=== PATIENT | female | born 1945 | race Caucasian/White ===

== ENCOUNTER 2022-06-10 11:36 | Emergency (ER) | payer MEDICARE, SELFPAY ==
--- NOTE | ~2022-06-10 | CT_ITS ---
EXAMINATION: CT HEAD WITHOUT CONTRAST CLINICAL INFORMATION: Head pain status post fall with head strike. COMPARISON: None available. TECHNIQUE: Contiguous axial imaging was performed from the skull base to vertex without intravenous administration of contrast. Coronal and sagittal reformatted images were obtained. This CT examination was performed using dose optimization techniques as appropriate, variously including the following: *Automated exposure control *Adjustment of mA and/or kV according to patient size (this includes techniques or standardized protocols for targeted exams where dose is matched to indication/reason for exam; i.e. extremities or head) *Use of iterative reconstruction technique DLP: 822 mGy-cm FINDINGS: There is mild widening of the cortical sulci and associated ventriculomegaly. The lateral ventricles are symmetrical. The third and fourth ventricles are in their normal midline position. The basilar and prepontine cisterns are unremarkable. There is no acute intra or extracerebral abnormality. There is no mass effect or midline shift. Sections through the bony calvarium are unremarkable. The orbits are intact. The paranasal sinuses are clear. The mastoid air cells are clear. Mild mid nasal septal deviation, apex of the right. CT/CT head/brain wo IV con IMPRESSION: No acute intracranial pathology.
--- NOTE | ~2022-06-10 | XR_ITS ---
EXAMINATION: XR ANKLE, RIGHT CLINICAL INFORMATION: Right ankle pain status post remote fall. COMPARISON: None available. TECHNIQUE: AP, lateral, and mortise views of the right ankle. FINDINGS: There is a minimally displaced fracture of the lateral malleolus with adjacent sclerotic changes. The distal tibia is intact. The tarsal bones are normally aligned. Small plantar and retrocalcaneal spurs are seen. The soft tissues are unremarkable. XR/XR ankle RT min 3V IMPRESSION: 1. Subacute, minimally displaced lateral malleolus fracture with adjacent sclerotic changes suggesting healing. 2. Small degenerative calcaneal spurs.
--- NOTE | ~2022-06-10 | CT_ITS ---
EXAMINATION: CT CERVICAL SPINE WITHOUT CONTRAST CLINICAL INFORMATION: Status post fall with neck pain. COMPARISON: None available. TECHNIQUE: Multiple axial images of the cervical spine were obtained without administration of intravenous contrast. Coronal and sagittal reformatted images were obtained. This CT examination was performed using dose optimization techniques as appropriate, variously including the following: *Automated exposure control *Adjustment of mA and/or kV according to patient size (this includes techniques or standardized protocols for targeted exams where dose is matched to indication/reason for exam; i.e. extremities or head) *Use of iterative reconstruction technique DLP: 202.49 mGy-cm FINDINGS: There is straightening of the normal cervical lordosis with normal spinal alignment. The patient is status post anterior fusion from C7 to T2 with interbody device in place showing good anatomic alignment and no evidence for hardware malfunction. Mild to moderate multilevel degenerative disc disease is seen most pronounced at C5-6 and C6-7. The odontoid process is intact with mild articulating degenerative changes. The neural foramina are patent. Mild to moderate multilevel bilateral facet arthropathy is seen. The spinous processes are intact. The cervical soft tissues are unremarkable. There is no lymphadenopathy. The thyroid gland is unremarkable. The lung apices are unremarkable. CT/CT cervical spine wo IV con IMPRESSION: 1. Straightening of the normal cervical lordosis may be secondary to positioning and/or muscle spasm. 2. Multilevel degenerative changes without acute abnormality.
--- NOTE | ~2022-06-10 | XR_ITS ---
EXAMINATION: XR WRIST, RIGHT CLINICAL INFORMATION: Right wrist pain status post fall. COMPARISON: None available. TECHNIQUE: PA, lateral, scaphoid and oblique views of the right wrist. An indicator arrow points to the medial wrist. FINDINGS: There is generalized osteopenia. Mild first carpometacarpal, triscaphe and radiocarpal degenerative joint changes are seen. The carpal bones are normally aligned. The distal radius and ulna are intact. The soft tissues are unremarkable. XR/XR wrist RT 2V IMPRESSION: Generalized osteopenia and mild degenerative joint changes most consistent with osteoarthritis. No overt fracture.
--- NOTE | ~2022-06-10 | XR_ITS ---
EXAMINATION: XR HIP, RIGHT, PELVIS CLINICAL INFORMATION: Hip pain status post remote fall. COMPARISON: None available. TECHNIQUE: Two views of the right hip. FINDINGS: Mild bilateral hip degenerative joint changes are seen. There is no acute fracture or dislocation. The bony pelvis is intact. The soft tissues are unremarkable. XR/XR hip RT w PEL1V IMPRESSION: Mild bilateral hip osteoarthritis. No acute fracture.
--- NOTE | 2022-06-10 11:39 | ED_ITS ---
HPI - General Adult General Chief complaint: General Medical Stated complaint: Laceration post fall per EMS Time Seen by Provider: 06/10/22 11:38 Source: patient, family (patient's daughter) and EMS Mode of arrival: EMS Limitations: no limitations History of Present Illness HPI narrative: Patient is a 77 year old assigned female at with a history of recent falls presenting to the emergency department today after a fall. Patient states that her cane got stuck in a crack going up a ramp and she fell. Patient states that she did strike her head but denies any loss of consciousness. Patient states that she had a previous fall in which she broke her right ankle and that is why she is wearing a brace on it. Patient states that she has right wrist and right hip pain. Patient states that she has a small cut to the left side of her head. Patient denies any dizziness, lightheadedness, abdominal pain, nausea, vomiting, fever, chills, blurry vision, double vision, loss of vision, chest pain, difficulty breathing, shortness of breath, back pain, night sweats, pain with urination, increased urinary frequency, increased urinary urgency, blood in her urine or stool, syncope or a near syncopal episode, bowel incontinence, bladder incontinence, bowel retention, bladder retention, or any other complaints at this time. Onset (ago): minute(s) Location: face and right (wrist and hip) Severity: mild Severity scale (1-10): 2 Quality: dull Relieving factors: none Exacerbating factors: none Associated symptoms: denies other symptoms Treatments prior to arrival: none Related Data Allergies Allergy/AdvReac Type Severity Reaction Status Date / Time No Known Allergies Allergy Verified 06/10/22 11:44 Review of Systems Constitutional: Constitutional: Reports no additional constitutional complaints, Denies chills, Denies fever(s) and Denies night sweats Eyes: Eyes: Reports no additional eye complaints, Denies blurry vision, Denies change in vision, Denies diplopia, Denies eye discharge, Denies loss of vision and Denies eye pain ENT: Denies dizziness Cardiovascular: Cardiovascular: Reports no additional cardiovascular complaints, Denies chest pain, Denies lightheadedness, Denies Loss of Consciousness and Denies dyspnea Respiratory: Respiratory: Reports no additional respiratory complaints and Denies dyspnea Gastrointestinal: Gastrointestinal: Reports no additional gastrointestinal complaints, Denies abdominal pain, Denies melena, Denies hematochezia, Denies change in bowel habits and Denies change in stool character Genitourinary: Genitourinary: Denies hematuria, Denies urinary frequency, Denies dysuria, Denies urinary incontinence, Denies urinary hesitancy and Denies urinary urgency Musculoskeletal: Musculoskeletal: Reports no additional musculoskeletal complaints, Denies numbness and Denies tingling Comments: right wrist pain, right hip pain, right ankle in brace Integumentary/Breasts: Comments: left foreahead laceration Neurologic: Denies dizziness, Denies loss of vision, Denies numbness and Denies tingling Psychiatric: Psychiatric: Reports no additional psychiatric complaints Endocrine: Endocrine: Reports no additional endocrine complaints Hematologic/Lymphatic: Hematologic/Lymphatic: Reports no additional hematologic/lymphatic complaints Allergic/Immunologic: Allergic/Immunologic: Reports no additional allergic/immunologic complaints PMFSH Past Medical History Attestation statement: The following information was validated with the patient. (all information validated with the patient's daughter) Source: old records reviewed, obtained from family (patient's daughter) and nursing notes reviewed Social History Social History Advance Directives: Yes Advance Directives Information Provided: No Advance Directives on File: No Physical Exam ED Vital Signs: Vital Signs - 24 hr 06/10/22 11:48 Temperature 97.7 F Pulse Rate 67 Respiratory Rate 17 Blood Pressure 129/80 Pulse Oximetry 98 Oxygen Delivery Method Room Air BMI result Body Mass Index 18.8 Const General: cooperative, no acute distress, alert and awake Nutritional Appearance: well nourished Orientation/consciousness: patient oriented x3 Limitations: no limitations HENMT Other: 1cm laceration above the left eyebrow, no gaping areas, no active bleeding Ears: hearing grossly normal bilaterally and external ears normal General nose exam: Normal external nose present, no nasal discharge noted and no epistaxis Face and sinus: Yes normal facial exam, No abrasion and No laceration Mouth: Normal oral and palatal mucosa present, no drooling and no muffled voice Eyes General: appearance normal, both eyes and all related structures Periorbital: periorbital findings normal Eyelids: Yes eyelids normal Conjunctivae: conjunctivae normal Pupils: Equal, round and reactive pupils present EOM: EOMs intact bilaterally Neck Neck: Yes normal visual inspection, Yes full ROM and Yes no lymphadenopathy Chest Chest palpation & inspection: normal inspection of the chest Resp Effort & Inspection: normal respiratory effort and able to speak in complete sentences Auscultation: clear to auscultation bilaterally Cardio Rate: regular rate Rhythm: regular rhythm GI Inspection: Yes normal to inspection Neuro General: patient oriented x3 and moves all extremities Cranial nerves: Yes Equal, round and reactive pupils present Cognition (Neuro): normal cognition Motor exam (neuro): 5/5 motor strength present throughout Sensory Exam: Normal double simultaneous stimulation for sensation Coordination: [id number] test normal Extrem Other: right ankle in a brace secondary to previous injury General: Yes full ROM and Yes capillary refill normal Psych Appearance: grossly normal Mental Status: mental status grossly normal Affect: normal affect Attitude: cooperative Thought process: Normal thought process present Thought content: Normal thought content present Insight: Good insight present (Psych) Medications Administered Discontinued Medications Generic Name Dose Route Start Last Admin Trade Name Freq PRN Reason Stop Dose Admin Diphtheria/Tetanus/Acell Pertussis 0.5 ml 06/10/22 11:45 06/10/22 12:04 Diphth,Pertus(Acell),Tet Adult 0.5 Ml Syringe IM 06/10/22 11:46 0.5 ml .ONCE ONE Administration Procedures Laceration Laceration 1: Site: face Side (If applicable): left (above eyebrow) Size (cm): 1 Description: linear Depth: simple, single layer Pre-repair: wound explored, irrigated extensively and deep structures intact Skin layer closed with: other (dermabond) Medical Decision Making Medical Decision Making MDM Narrative: Patient is a 77 year old assigned female at with a history of recent falls presenting to the emergency department today after a fall. Patient's physical exam showed a small laceration above the left eyebrow and a brace on the right ankle but was otherwise unremarkable. Patient's right wrist and right hip/pelvis x-rays showed no acute process. Patient's head and C-spine CTs showed no acute process. Patient's right ankle xr showed a known, healing, ankle fracture. Patient's left eyebrow laceration was repaired with dermabond, without incident. I explained my physical exam findings as well as all test results to the patient and the patient's daughter. I answered all questions asked by the patient and the patient's daughter. I stressed the importance of the patient taking her medication as prescribed. I stressed the importance of the patient following up with her primary care provider. I stressed the importance of the patient returning to the emergency department immediately if her symptoms were to worsen or if she were to develop any dizziness, shortness of breath, difficulty breathing, chest pain, blurry vision, loss of vision, nausea, vomiting, abdominal pain, fever, chills, back pain, or any other complaints. Patient and the patient's daughter verbalized agreement and understanding with this treatment plan and discharge. Differential Diagnosis Differential Diagnoses: The differential diagnosis associated with the presentation includes fall Independent Interpretation I performed an independent interpretation of an: Plain X-Ray and CT Scan Interpretation: My interpretation is in agreement with the radiologist's impression of these imaging studies. EXAMINATION: XR WRIST, RIGHT CLINICAL INFORMATION: Right wrist pain status post fall. COMPARISON: None available.? TECHNIQUE: PA, lateral, scaphoid and oblique views of the right wrist. An indicator arrow points to the medial wrist. FINDINGS: There is generalized osteopenia. Mild first carpometacarpal, triscaphe and radiocarpal degenerative joint changes are seen. The carpal bones are normally aligned. The distal radius and ulna are intact. The soft tissues are unremarkable. XR/XR wrist RT 2V IMPRESSION: Generalized osteopenia and mild degenerative joint changes most consistent with osteoarthritis. No overt fracture. Dictated By: Be Gomez MD Signed By: Electronically signed by Be Gomez MD 06/10/22 1419 EXAMINATION: XR HIP, RIGHT, PELVIS CLINICAL INFORMATION: Hip pain status post remote fall. COMPARISON: None available. TECHNIQUE: Two views of the right hip. FINDINGS: Mild bilateral hip degenerative joint changes are seen. There is no acute fracture or dislocation. The bony pelvis is intact. The soft tissues are unremarkable.? XR/XR hip RT w PEL1V IMPRESSION: Mild bilateral hip osteoarthritis. No acute fracture Dictated By: Be Gomez MD Signed By: Electronically signed by Be Gomez MD 06/10/22 1349 EXAMINATION: XR ANKLE, RIGHT CLINICAL INFORMATION: Right ankle pain status post remote fall.? COMPARISON: None available.? TECHNIQUE: AP, lateral, and mortise views of the right ankle. FINDINGS: There is a minimally displaced fracture of the lateral malleolus with adjacent sclerotic changes. The distal tibia is intact. The tarsal bones are normally aligned. Small plantar and retrocalcaneal spurs are seen. The soft tissues are unremarkable.? XR/XR ankle RT min 3V IMPRESSION: 1.? Subacute, minimally displaced lateral malleolus fracture with adjacent sclerotic changes suggesting healing. 2.? Small degenerative calcaneal spurs. Dictated By: Be Gomez MD Signed By: Electronically signed by Be Gomez MD 06/10/22 1352 EXAMINATION: CT HEAD WITHOUT CONTRAST CLINICAL INFORMATION: Head pain status post fall with head strike. COMPARISON: None available.? TECHNIQUE: Contiguous axial imaging was performed from the skull base to vertex without intravenous administration of contrast. Coronal and sagittal reformatted images were obtained. This CT examination was performed using dose optimization techniques as appropriate, variously including the following: *Automated exposure control *Adjustment of mA and/or kV according to patient size (this includes techniques or standardized protocols for targeted exams where dose is matched to indication/reason for exam; i.e. extremities or head) *Use of iterative reconstruction technique DLP: 822 mGy-cm FINDINGS: There is mild widening of the cortical sulci and associated ventriculomegaly. The lateral ventricles are symmetrical. The third and fourth ventricles are in their normal midline position. The basilar and prepontine cisterns are unremarkable. There is no acute intra or extracerebral abnormality. There is no mass effect or midline shift. Sections through the bony calvarium are unremarkable. The orbits are intact. The paranasal sinuses are clear. The mastoid air cells are clear. Mild mid nasal septal deviation, apex of the right. CT/CT head/brain wo IV con IMPRESSION: No acute intracranial pathology. Dictated By: Be Gomez MD Signed By: Electronically signed by Be Gomez MD 06/10/22 1402 EXAMINATION: CT CERVICAL SPINE WITHOUT CONTRAST CLINICAL INFORMATION: Status post fall with neck pain.? COMPARISON: None available.? ? TECHNIQUE: Multiple axial images of the cervical spine were obtained without administration of intravenous contrast. Coronal and sagittal reformatted images were obtained.? This CT examination was performed using dose optimization techniques as appropriate, variously including the following: *Automated exposure control *Adjustment of mA and/or kV according to patient size (this includes techniques or standardized protocols for targeted exams where dose is matched to indication/reason for exam; i.e. extremities or head) *Use of iterative reconstruction technique DLP: 202.49 mGy-cm FINDINGS: There is straightening of the normal cervical lordosis with normal spinal alignment. The patient is status post anterior fusion from C7 to T2 with interbody device in place showing good anatomic alignment and no evidence for hardware malfunction. Mild to moderate multilevel degenerative disc disease is seen most pronounced at C5-6 and C6-7. The odontoid process is intact with mild articulating degenerative changes. The neural foramina are patent. Mild to moderate multilevel bilateral facet arthropathy is seen. The spinous processes are intact. The cervical soft tissues are unremarkable. There is no lymphadenopathy. The thyroid gland is unremarkable. The lung apices are unremarkable. CT/CT cervical spine wo IV con IMPRESSION: 1.? Straightening of the normal cervical lordosis may be secondary to positioning and/or muscle spasm. 2.? Multilevel degenerative changes without acute abnormality. Dictated By: Be Gomez MD Signed By: Electronically signed by Be Gomez MD 06/10/22 8545 Independent Historian Clinical information obtained from an independent historian. History obtained from or confirmed by: EMS and Other (patient's daughter) Discharge Plan Discharge Clinical Impression: Fall Patient Disposition: Home, Self-Care Instructions: Skin Adhesive Care (ED), Fall Prevention (ED) Additional Instructions: Do NOT Get the affected area wet for 7 days. Follow up with your primary care provider. Return to the emergency department immediately if your symptoms worsen or if you develop any dizziness, shortness of breath, difficulty breathing, chest pain, blurry vision, loss of vision, nausea, vomiting, abdominal pain, fever, chills, back pain, or any other complaints. Referrals: Jasmyne Connolly MD [Primary Care Provider] - Interventions: ED Discharge Assessment Last Done: 06/10/22 14:29 Discharge Date/Time: 06/10/22 14:32 Print Language: Turkmen
[2022-06-10 11:48] VITALS: BP 129/80; BP 134/78; PULSE 66; PULSE 67; RESP 17; TEMP 36.5; O2SAT 97; O2SAT 98; BMI 18.8
[2022-06-10] MEDS: Diphth,Pertus(ACell),Tet Adult 0.5 ML SYRINGE IM (12:04)
--- OUTSIDE RECORDS SUMMARY | 2022-06-10 13:04 | XMS_ITS ---
Author Name Unknown Organization [facility] Address Unknown Care Team Providers Care General Accountant Name Role Phone Jeana Duncan Primary Care Physician [phone] Encounter FIN Number [id number] Date(s): 12/03/17 - 12/03/17 [facility] [address] [place], [place] [id number]- [phone] Discharge Disposition: Discharged to home or self care Attending Physician: Kwame Goss MD Admitting Physician: Kwame Goss MD Vital Signs Most recent to oldest [Reference Range]: 1 2 Body Mass Index 21 (12/03/17 10:06 AM) Height 172.72 cm (12/03/17 10:06 AM) Height In Inches 68 in (12/03/17 10:06 AM) Height Method Actual (12/03/17 10:06 AM) Weight 63 kg (12/03/17 10:06 AM) Weight In Pounds 138.891 lb (12/03/17 10:06 AM) Weight Last Obtained Date (12/03/17 10:06 AM) Weight Method Stated (12/03/17 10:06 AM) BSA 1.75 (12/03/17 10:06 AM) MF Score 15 (12/03/17 10:10 AM) Temperature Oral [35.8-37.3 DegC] 36.8 D egC (12/03/17 10:06 AM) Heart Rate [60-100 bpm] 74 bpm (12/03/17 11:00 AM) 87 bpm (12/03/17 10:06 AM) Respiratory Rate [12-24 br/min] 18 br/mi n (12/03/17 10:06 AM) Blood Pressure [90-140/60-90 mmHg] 148/7 2mmHg *HI* (12/03/17 11:00 AM) 152/81mmHg *HI* (12/03/17 10:06 AM) Mean Arterial Pressure 92 mmHg (12/03/17 11:00 AM) Masked Patient No (12/03/17 10:06 AM) Masked Staff No (12/03/17 10:06 AM) O2 Saturation [94-100 %] 96 % (12/03/17 11:00 AM) 99 % (12/03/17 10:06 AM) Problem List Condition Effective Dates Status Health Status Inform ant Alcoholism(Confirmed) Active Anemia(Confirmed) Active Anxiety(Confirmed) Active Depression(Confirmed) Active Hypothyroid(Confirmed) Active Korsakoff disease(Confirmed) Active Neuropathy(Confirmed) Active Allergies, Adverse Reactions, Alerts Substance Reaction Severity Status CeleBREX Active Medications acetaminophen-codeine #3 0 Refill(s) Start Date: 12/03/17 Status: Ordered baclofen 0 Refill(s) Start Date: 12/03/17 Status: Ordered busPIRone 0 Refill(s) Start Date: 12/03/17 Status: Ordered cephalexin 500 mg oral capsule 500 mg, = 1, Cap, po, QID, X 5, day, # 20, Cap, 0 Refill(s) Start Date: 09/13/14 Stop Date: 09/18/14 Status: Completed citalopram 20 mg oral tablet 20 mg, = 1, tab, Oral, DAILY Start Date: 12/12/15 Status: Ordered cyclobenzaprine 10 mg oral tablet 10 mg, = 1, tab, po, TID, PRN, for spasm, # 12, tab, 0 Refill(s) Start Date: 12/03/17 Stop Date: 12/10/17 Status: Ordered diclofenac 0 Refill(s) Start Date: 12/03/17 Status: Ordered escitalopram 0 Refill(s) Start Date: 12/03/17 Status: Ordered folic acid 0 Refill(s) Start Date: 12/03/17 Status: Ordered gabapentin 100 mg oral capsule 100 mg, = 1, Cap, Oral, QHS Start Date: 12/12/15 Status: Ordered hydrOXYzine pamoate 0 Refill(s) Start Date: 12/03/17 Status: Ordered Levothroid 50 mcg (0.05 mg) oral tablet 50 mcg, = 1, tab, Oral, DAILY Start Date: 12/12/15 Status: Ordered [place] 5 mg-325 mg oral tablet 1-2 tabs, po, Q4H, PRN, for pain, (not to exceed 4000 mg acetaminophen per day) Do not drive or operate machinery while on medications please., # 20, tab, 0 Refill(s) Start Date: 08/19/13 Stop Date: 12/12/15 Status: Completed oxyCODONE 5 mg oral capsule 5 mg, = 1, Cap, po, Q6H, PRN, for pain, 1 to 2 every 4 to 6 hours as needed for pain. Avoid excessive sedation., X 4, day, # 24, Cap, 0 Refill(s) Start Date: 09/13/14 Stop Date: 09/17/14 Status: Completed TNF COMMENT per daughter, patient hasn't taken med for a couple weeks. Start Date: 12/12/15 Stop Date: 12/19/15 Status: Discontinued traZODone 0 Refill(s) Start Date: 12/03/17 Status: Ordered Vitamin B1 100 mg oral tablet 100 mg, = 1, tab, Oral, DAILY Start Date: 12/12/15 Status: Ordered Vitamin B12 0 Refill(s) Start Date: 12/03/17 Status: Ordered Vitamin D3 1000 intl units oral tablet 1,000 International_Unit, = 1, tab, po, DAILY Start Date: 12/12/15 Status: Ordered Immunizations Given and Recorded Vaccine Date Status Refusal Reason tetanus/diphth/pertuss (Tdap) adult/adol 1 12/21/15 Given 1Result Comment: Right deltoid. Social History Social History Type Response Smoking Status Former smoker; Stopp ed at age: 40; 1 entered on: 12/21/15 1Smoked one half cigarette in last week and a half. Assessment and Plan Future Appointments ??
--- OUTSIDE RECORDS SUMMARY | 2022-06-10 13:04 | XMS_ITS ---
Author Name Unknown Organization [facility] Care Team Providers Care [place] Seamer Name Role Phone Jeana Duncan Primary Care Physician Encounter FIN Number [id number] Date(s): 10/15/16 - 10/15/16 [place] Discharge Disposition: Discharged to home or self care Attending Physician: Jenny Pettit PA-C Admitting Physician: Jenny Pettit PA-C Vital Signs Most recent to oldest [Refer ence Range]: 1 2 Height 172.72 cm (10/15/16 6:53 PM) Height In Inches 68 in (10/15/16 6:53 PM) Height Method Actual (10/15/16 6:53 PM) MF Score 60 (10/15/16 7:45 PM) Temperature Oral [35.8-37.3 DegC] 36.8 D egC (10/15/16 6:53 PM) Heart Rate [60-100 bpm] 101 bpm *HI* (10/15/16 6:53 PM) Pulse Rate 100 bpm (10/15/16 8:24 PM) Respiratory Rate [12-24 br/min] 16 br/mi n (10/15/16 8:24 PM) 18 br/min (10/15/16 6:53 PM) Blood Pressure Method Automatic (10/15/16 8:24 PM) Blood Pressure Extremity Left, Arm, Upper (10/15/16 8:24 PM) Blood Pressure Patient Position Sitting (10/15/16 8:24 PM) Blood Pressure [90-140/60-90 mmHg] 151/7 6mmHg *HI* (10/15/16 8:24 PM) 101/78mmHg (10/15/16 6:53 PM) Masked Patient No (10/15/16 6:53 PM) Masked Staff No (10/15/16 6:53 PM) Medical Gas Room Air (10/15/16 8:24 PM) Room Air (10/15/16 6:53 PM) O2 Saturation [94-100 %] 98 % (10/15/16 8:24 PM) 97 % (10/15/16 6:53 PM) Fall Precautions Call light within re ach of patient, Call light within reach of family, Visual doorway identifier, Toileting assistance, Constant observer, All medical equipment on same side of bed, Bed rails up, Bed in low position (10/15/16 7:45 PM) Problem List Condition Effective Dates Status Health Status Inform ant Alcoholism(Confirmed) Active Anemia(Confirmed) Active Anxiety(Confirmed) Active Depression(Confirmed) Active Hypothyroid(Confirmed) Active Korsakoff disease(Confirmed) Active Neuropathy(Confirmed) Active Allergies, Adverse Reactions, Alerts Substance Reaction Severity Status CeleBREX Active Medications cephalexin 500 mg oral capsule 500 mg, = 1, Cap, po, QID, X 5, day, # 20, Cap, 0 Refill(s) Start Date: 09/13/14 Stop Date: 09/18/14 Status: Completed citalopram 20 mg oral tablet 20 mg, = 1, tab, Oral, DAILY Start Date: 12/12/15 Status: Ordered gabapentin 100 mg oral capsule 100 mg, = 1, Cap, Oral, QHS Start Date: 12/12/15 Status: Ordered Levothroid 50 mcg (0.05 mg) oral tablet 50 mcg, = 1, tab, Oral, DAILY Start Date: 12/12/15 Status: Ordered [place] 5 mg-325 mg oral tablet 1-2 tabs, [...] Date: 12/12/15 Stop Date: 12/19/15 Status: Discontinued Vitamin B1 100 mg oral tablet 100 mg, = 1, tab, Oral, DAILY Start Date: 12/12/15 Status: Ordered Vitamin D3 1000 intl units oral tablet 1,000 International_Unit, = 1, tab, po, DAILY Start Date: 12/12/15 Status: Ordered Results Miscellaneous Lab Studies Most recent to oldest [Reference Range]: 1 POC Breathalyzer Result 0.163 (10/15/16 7:15 PM) Immunizations Given and Recorded Vaccine Date Status Refusal Reason tetanus/diphth/pertuss (Tdap) adult/adol 1 12/21/15 Given 1Result Comment: Right deltoid. Social History Social History Type Response Assessment and Plan Future Appointments ??
--- OUTSIDE RECORDS SUMMARY | 2022-06-10 13:04 | XMS_ITS ---
Author Name Unknown Organization [id number] Care Team Providers Care Material Hauler Name Role Phone Jeana Duncan Primary Care Physician Encounter FIN Number [id number] Date(s): 12/12/15 - 12/19/15 [id number] Discharge Diagnosis: Alcohol withdrawal Discharge Diagnosis: Alcoholic cirrhosis Discharge Diagnosis: Pancytopenia Discharge Diagnosis: Korsakoff disease Discharge Disposition: Discharged/transferred-Home Healthcare Attending Physician: Eryn Dorado MD Admitting Physician: Stevo Goss MD Vital Signs Most recent to oldest [Reference Range]: 1 2 3 Body Mass Index 23 (12/12/15 9:09 PM) Height 172.72 cm (12/12/15 9:09 PM) Height In Inches 68 in (12/12/15 9:09 PM) Height Method Actual (12/12/15 9:09 PM) Weight 70.1 kg (12/12/15 9:09 PM) Weight In Pounds 154.544 lb (12/12/15 9:09 PM) Weight Method Bed Scale (12/12/15 9:09 PM) Daily Weight [40-160 kg] 70.0 kg (12/19/15 3:20 AM) 69 kg (12/18/15 7:28 AM) 70.5 kg (12/18/15 6:33 AM) Daily Weight Method Bed Scale (12/19/15 3:20 AM) Bed Scale (12/18/15 7:28 AM) Bed Scale (12/18/15 6:33 AM) BSA 1.83 (12/12/15 9:09 PM) MF Score 40 (12/19/15 10:00 AM) 75 (12/18/15 7:26 PM) 55 (12/18/15 10:16 AM) Temperature Axillary [35.2-36.7 DegC] 36.8 DegC *HI* (10/11/16 12:29 AM) 36.7 DegC (12/16/15 10:06 PM) 37.2 DegC *HI* (12/16/15 4:00 AM) Temperature Oral [35.8-37.3 DegC] 36.8 DegC (12/19/15 3:16 PM) 36.8 DegC (12/19/15 12:51 PM) 36.9 DegC (12/19/15 7:24 AM) Heart Rate [60-100 bpm] 99 bpm (12/19/15 4:00 PM) 94 bpm (12/19/15 3:16 PM) 88 bpm (12/19/15 1:00 PM) Continuous Pulse Oximetry On (12/19/15 3:20 AM) On (12/18/15 11:28 PM) On (12/18/15 8:27 PM) Centralized Monitoring of Pulse Oximetry On (12/19/15 3:20 AM) On (12/18/15 11:28 PM) On (12/18/15 8:27 PM) Pulse Rate 72 bpm (12/16/15 2:23 PM) 83 bpm (12/16/15 12:12 PM) 85 bpm (12/16/15 10:00 AM) Respiratory Rate [12-24 br/min] 17 br/min (12/19/15 3:16 PM) 18 br/min (12/19/15 12:51 PM) 14 br/min (12/19/15 7:24 AM) Blood Pressure Method Automatic (12/19/15 3:16 PM) Automatic (12/19/15 12:51 PM) Automatic (12/19/15 7:24 AM) Blood Pressure Extremity Right, Arm, Upper (12/19/15 3:16 PM) Right, Arm, Upper (12/19/15 12:51 PM) Right, Arm, Upper (12/19/15 7:24 AM) Blood Pressure Patient Position Supine (12/19/15 3:20 AM) Supine (12/18/15 11:28 PM) Sitting (12/17/15 7:26 PM) Blood Pressure [90-140/60-90 mmHg] 116/55mmHg (12/19/15 3:16 PM) 126/68mmHg (12/19/15 12:51 PM) 111/63mmHg (12/19/15 7:24 AM) Mean Arterial Pressure 81 mmHg (12/18/15 3:43 PM) 72 mmHg (12/18/15 3:47 AM) 85 mmHg (12/17/15 1:49 PM) Masked Patient No (12/12/15 2:19 PM) No (12/12/15 2:14 PM) Masked Staff No (12/12/15 2:19 PM) No (12/12/15 2:14 PM) Vital Signs Additional Information Arrived to PCU (12/16/15 11:11 AM) patient sleeping (12/16/15 6:00 AM) patient sleeping (12/16/15 2:00 AM) Medical Gas Room Air (12/19/15 3:16 PM) Room Air (12/19/15 1:00 PM) Room Air (12/19/15 12:51 PM) Medical Gas Delivery Method N/A (12/18/15 11:50 AM) Nasal cannula (12/15/15 1:00 PM) Nasal cannula (12/15/15 12:00 PM) Oxygen Flow 2 L/min (12/15/15 1:00 PM) 2 L/min (12/15/15 12:00 PM) 2 L/min (12/15/15 11:00 AM) O2 Saturation [94-100 %] 97 % (12/19/15 3:16 PM) 100 % (12/19/15 1:00 PM) 100 % (12/19/15 12:51 PM) End Tidal CO2 26 mmHg (12/15/15 4:45 PM) 30 mmHg (12/15/15 1:00 PM) 33 mmHg (12/15/15 12:00 PM) Symptomatic No (12/17/15 8:40 AM) Activities Ambulation room (12/19/15 5:00 PM) Ambulation hallway, Up in chair, Other: SO here (12/19/15 4:00 PM) Ambulation hallway, Up in chair, Up to bathroom (12/19/15 3:00 PM) Bladder Checks Done (12/19/15 5:00 PM) Done (12/19/15 4:00 PM) Done (12/19/15 3:00 PM) Fall Precautions Done (12/19/15 5:00 PM) Done (12/19/15 4:00 PM) Done (12/19/15 3:00 PM) Interventions Heating Pad (12/19/15 10:00 AM) AM care, HOB elevated, Oral care (12/19/15 8:00 AM) HOB elevated (12/19/15 7:00 AM) VTE Prophylaxis PCDs Off (12/19/15 8:00 AM) PCDs Off (12/19/15 7:00 AM) PCDs On (12/19/15 6:00 AM) Interventions Pericare, Up to bathroom (12/19/15 3:00 PM) Pericare, Up to bathroom (12/19/15 12:00 PM) Pericare, Up to bathroom (12/19/15 8:00 AM) Safety One-to one Caregiver (12/19/15 5:00 PM) One-to one Caregiver (12/19/15 4:00 PM) One-to one Caregiver (12/19/15 3:00 PM) MEWS Score 1 (12/19/15 5:00 PM) 1 (12/19/15 1:00 PM) 0 (12/19/15 9:00 AM) MEWS Actions None required (12/19/15 5:00 PM) None required (12/19/15 1:00 PM) None required (12/19/15 9:00 AM) Problem List Condition Effective Dates Status Health Status Inform ant Korsakoff disease(Confirmed) Active Allergies, Adverse Reactions, Alerts Substance Reaction [...] Oral, DAILY Start Date: 12/12/15 Status: Ordered [place] 5 mg-325 mg oral tablet 1-2 tabs, [...] DAILY Start Date: 12/12/15 Status: Ordered Results Hematology Most recent to oldest [Reference Range]: 1 2 3 WBC [4.0-11.0 K/uL] 4.0 K/uL (12/19/15 6:38 AM) 3.8 K/uL *LOW* (12/18/15 6:39 AM) 3.6 K/uL *LOW* (12/17/15 7:01 AM) RBC [3.80-5.20 M/uL] 3.29 M/uL *LOW* (12/19/15 6:38 AM) 3.16 M/uL *LOW* (12/18/15 6:39 AM) 3.21 M/uL *LOW* (12/17/15 7:01 AM) Hgb [11.6-15.5 gm/dL] 11.6 gm/dL (12/19/15 6:38 AM) 11.1 gm/dL *LOW* (12/18/15 6:39 AM) 11.1 gm/dL *LOW* (12/17/15 7:01 AM) Hct [35.0-46.0 %] 33.9 % *LOW* (12/19/15 6:38 AM) 32.1 % *LOW* (12/18/15 6:39 AM) 32.2 % *LOW* (12/17/15 7:01 AM) MCV [80.0-100.0 FL] 103.2 FL *HI* (12/19/15 6:38 AM) 101.5 FL *HI* (12/18/15 6:39 AM) 100.2 FL *HI* (12/17/15 7:01 AM) MCH [25.0-34.0 PG] 35.2 PG *HI* (12/19/15 6:38 AM) 35.2 PG *HI* (12/18/15 6:39 AM) 34.5 PG *HI* (12/17/15 7:01 AM) MCHC [31.0-36.0 gm/dL] 34.1 gm/dL (12/19/15 6:38 AM) 34.7 gm/dL (12/18/15 6:39 AM) 34.4 gm/dL (12/17/15 7:01 AM) RDW [11.0-14.5 %] 15.8 % *HI* (12/19/15 6:38 AM) 16.2 % *HI* (12/18/15 6:39 AM) 16.0 % *HI* (12/17/15 7:01 AM) Platelet [150-400 K/uL] 145 K/uL *LOW* (12/19/15 6:38 AM) 108 K/uL *LOW* (12/18/15 6:39 AM) 85 K/uL *LOW* (12/17/15 7:01 AM) Neut Auto 26.9 % *NA* (12/19/15 6:38 AM) 36.9 % *NA* (12/18/15 6:39 AM) 38.8 % *NA* (12/17/15 7:01 AM) Lymph Auto 52.9 % *NA* (12/19/15 6:38 AM) 42.0 % *NA* (12/18/15 6:39 AM) 43.9 % *NA* (12/17/15 7:01 AM) [place] Auto 16.6 % *NA* (12/19/15 6:38 AM) 17.8 % *NA* (12/18/15 6:39 AM) 13.5 % *NA* (12/17/15 7:01 AM) Eos Auto 2.7 % *NA* (12/19/15 6:38 AM) 2.6 % *NA* (12/18/15 6:39 AM) 3.0 % *NA* (12/17/15 7:01 AM) Baso Auto 0.9 % *NA* (12/19/15 6:38 AM) 0.7 % *NA* (12/18/15 6:39 AM) 0.8 % *NA* (12/17/15 7:01 AM) Neut# Auto [2.0-7.3 K/uL] 1.1 K/uL *LOW* (12/19/15 6:38 AM) 1.4 K/uL *LOW* (12/18/15 6:39 AM) 1.4 K/uL *LOW* (12/17/15 7:01 AM) Lymph# Auto [1.0-3.4 K/uL] 2.1 K/uL (12/19/15 6:38 AM) 1.6 K/uL (12/18/15 6:39 AM) 1.6 K/uL (12/17/15 7:01 AM) [place]# Auto [0.00-0.80 K/uL] 0.70 K/uL (12/19/15 6:38 AM) 0.70 K/uL (12/18/15 6:39 AM) 0.50 K/uL (12/17/15 7:01 AM) Eos# Auto [0.0-0.5 K/uL] 0.1 K/uL (12/19/15 6:38 AM) 0.1 K/uL (12/18/15 6:39 AM) 0.1 K/uL (12/17/15 7:01 AM) Baso# Auto [0.0-0.1 K/uL] 0.0 K/uL (12/19/15 6:38 AM) 0.0 K/uL (12/18/15 6:39 AM) 0.0 K/uL (12/17/15 7:01 AM) Coagulation Most recent to oldest [Reference Range]: 1 2 3 PT [11.8-14.1 sec] 13.8 sec (12/18/15 6:39 AM) 14.3 sec *HI* (12/12/15 2:37 PM) INR [0.9-1.2] 1.1 (12/18/15 6:39 AM) 1.2 (12/12/15 2:37 PM) PTT [24-34 sec] 29 sec (12/12/15 2:37 PM) Chemistry Most recent to oldest [Reference Range]: 1 2 3 Sodium Lvl [135-145 mmol/L] 139 mmol/L (12/19/15 6:38 AM) 136 mmol/L (12/18/15 6:39 AM) 139 mmol/L (12/17/15 7:01 AM) POC Na [135-145 mmol/l] 140 mmol/l (12/12/15 2:43 PM) Potassium [3.5-5.3 mmol/L] 4.1 mmol/L (12/19/15 6:38 AM) 3.8 mmol/L (12/18/15 6:39 AM) 3.6 mmol/L (12/17/15 7:01 AM) POC K [3.5-5.3 mmol/l] 4.0 mmol/l (12/12/15 2:43 PM) Chloride [98-109 mmol/L] 97 mmol/L *LOW* (12/19/15 6:38 AM) 96 mmol/L *LOW* (12/18/15 6:39 AM) 100 mmol/L (12/17/15 7:01 AM) POC Chloride [98-109 mmol/L] 102 mmol/L (12/12/15 2:43 PM) CO2 [21-32 mmol/L] 26 mmol/L (12/19/15 6:38 AM) 25 mmol/L (12/18/15 6:39 AM) 25 mmol/L (12/17/15 7:01 AM) POC TCO2M [21-32 mmol/L] 21 mmol/L (12/12/15 2:43 PM) AGAP [5-16 mmol/L] 16 mmol/L (12/19/15 6:38 AM) 15 mmol/L (12/18/15 6:39 AM) 14 mmol/L (12/17/15 7:01 AM) POC AGAP [5-16] 22 *HI* (12/12/15 2:43 PM) Glucose. [70-99 mg/dL] 115 mg/dL *HI* (12/19/15 6:38 AM) 88 mg/dL (12/18/15 6:39 AM) 92 mg/dL (12/17/15 7:01 AM) POCi Glucose [70-200 mg/dL] 136 mg/dL (12/12/15 2:43 PM) BUN [7-23 mg/dL] 8 mg/dL (12/19/15 6:38 AM) 8 mg/dL (12/18/15 6:39 AM) 5 mg/dL *LOW* (12/17/15 7:01 AM) POC BUN [7.00-23.00 mg/dL] 8.00 mg/dL (12/12/15 2:43 PM) Creatinine [0.6-1.2 mg/dL] 0.6 mg/dL (12/19/15 6:38 AM) 0.6 mg/dL (12/18/15 6:39 AM) 0.5 mg/dL *LOW* (12/17/15 7:01 AM) POC CREAT [0.6-1.2 mg/dL] 0.6 mg/dL (12/12/15 2:43 PM) BUN/CRE Ratio [11-35 Ratio] 13 Ratio (12/19/15 6:38 AM) 13 Ratio (12/18/15 6:39 AM) 10 Ratio *LOW* (12/17/15 7:01 AM) Calcium [8.5-10.5 mg/dL] 9.3 mg/dL (12/19/15 6:38 AM) 9.2 mg/dL (12/18/15 6:39 AM) 8.7 mg/dL (12/17/15 7:01 AM) POC Ca Ion [1.05-1.32 mmol/l] 1.05 mmol/l (12/12/15 2:43 PM) Albumin [3.3-4.8 gm/dL] 3.8 gm/dL (12/18/15 6:39 AM) 3.8 gm/dL (12/13/15 6:36 AM) 5.0 gm/dL *HI* (12/12/15 2:37 PM) Total Protein [6.3-8.0 gm/dL] 6.4 gm/dL (12/18/15 6:39 AM) 6.2 gm/dL *LOW* (12/13/15 6:36 AM) 8.3 gm/dL *HI* (12/12/15 2:37 PM) Globulin [1.8-3.5 gm/dL] 2.6 gm/dL (12/18/15 6:39 AM) 2.4 gm/dL (12/13/15 6:36 AM) 3.3 gm/dL (12/12/15 2:37 PM) Alk Phos [31-120 U/L] 74 U/L (12/18/15 6:39 AM) 72 U/L (12/13/15 6:36 AM) 101 U/L (12/12/15 2:37 PM) A/G Ratio [1.0-2.2 Ratio] 1.5 Ratio (12/18/15 6:39 AM) 1.6 Ratio (12/13/15 6:36 AM) 1.5 Ratio (12/12/15 2:37 PM) Bili Total [0.0-1.5 mg/dL] 0.9 mg/dL (12/18/15 6:39 AM) 2.3 mg/dL *HI* (12/13/15 6:36 AM) 1.5 mg/dL (12/12/15 2:37 PM) Bili Direct [0.0-0.3 mg/dL] 0.2 mg/dL (12/18/15 6:39 AM) 0.3 mg/dL (12/12/15 2:37 PM) AST [5-40 U/L] 39 U/L (12/18/15 6:39 AM) 49 U/L *HI* (12/13/15 6:36 AM) 92 U/L *HI* (12/12/15 2:37 PM) ALT [5-50 U/L] 30 U/L (12/18/15 6:39 AM) 29 U/L (12/13/15 6:36 AM) 47 U/L (12/12/15 2:37 PM) Phosphorus [2.5-4.8 mg/dL] 4.3 mg/dL (12/19/15 6:38 AM) 4.0 mg/dL (12/18/15 6:39 AM) 3.8 mg/dL (12/17/15 7:01 AM) GFR [>=60 mL/min/1.73 m2] 99 mL/min/1.73 m2 (12/19/15 6:38 AM) 99 mL/min/1.73 m2 (12/18/15 6:39 AM) 123 mL/min/1.73 m2 (12/17/15 7:01 AM) Lipase Lvl [7-60 U/L] 20 U/L (12/12/15 2:37 PM) Magnesium [1.5-2.4 mg/dL] 1.7 mg/dL (12/19/15 6:38 AM) 1.6 mg/dL (12/18/15 6:39 AM) 1.6 mg/dL (12/17/15 7:01 AM) Ammonia Lvl [<=33 umol/L] 13 umol/L (12/12/15 3:05 PM) POC TROP [0.04-0.30 ng/mL] <.04 ng/mL (12/12/15 2:41 PM) TSH [0.40-5.00 uIU/mL] 3.22 uIU/mL (12/12/15 2:37 PM) Ethanol Lvl [<=10.1 mg/dL] 12.0 mg/dL *HI* (12/12/15 2:37 PM) Vitamin B12 [>=247 pg/mL] 319 pg/mL (12/12/15 5:52 PM) Urine Studies Most recent to oldest [Reference Range]: 1 2 3 POC Urine Spec. [place] 1.025 (12/12/15 4:58 PM) POC Urine Color Yellow (12/12/15 4:58 PM) POC Urine Clarity Clear (12/12/15 4:58 PM) POC Urine Glucose Negative *NA* (12/12/15 4:58 PM) POC Urine Bilirubin Negative (12/12/15 4:58 PM) POC Urine Ketones Trace *NA* (12/12/15 4:58 PM) POC Urine Blood Small *ABN* (12/12/15 4:58 PM) POC Urine PH 5.5 (12/12/15 4:58 PM) POC Urine Protein 30 mg/dL *ABN* (12/12/15 4:58 PM) POC Urine Urobilinogen 0.2 (12/12/15 4:58 PM) POC Urine Nitrites Negative (12/12/15 4:58 PM) POC Urine Leukocytes Negative (12/12/15 4:58 PM) Immunizations No data available for this section Procedures Procedure Date Related Diagnosis Body Site Collection of venous blood b y venipuncture 06-MAR-2014 11:40:11<$> 12/19/15 Collection of venous blood b y venipuncture 06-MAR-2014 11:40:11<$> 12/18/15 Collection of venous blood b y venipuncture 06-MAR-2014 11:40:11<$> 12/17/15 Collection of venous blood b y venipuncture 06-MAR-2014 11:40:11<$> 12/16/15 Collection of venous blood b y venipuncture 06-MAR-2014 11:40:11<$> 12/15/15 Collection of venous blood b y venipuncture 06-MAR-2014 11:40:11<$> 12/14/15 Collection of venous blood b y venipuncture 06-MAR-2014 11:40:11<$> 12/13/15 Social History Social History Type Response Smoking Status Former smoker; Stopp ed at age: 40 Assessment and Plan Future Appointments ??
--- OUTSIDE RECORDS SUMMARY | 2022-06-10 13:04 | XMS_ITS ---
Author Name Unknown Organization [facility] Address [address] [address]- Care Team Providers Care Straightening Roll Operator Name Role Phone Willa Nj Primary Care Physician Encounter FIN Number [id number] Date(s): 05/22/20 - 06/04/20 [facility] [id number] [place] [id number] Problem List Condition Effective Dates Status Health [...] Start Date: 12/03/17 Stop Date: 12/10/17 Status: Completed diclofenac 0 Refill(s) Start Date: 12/03/17 Status: Ordered escitalopram 0 Refill(s) Start Date: 12/03/17 Status: Ordered folic acid 0 Refill(s) Start Date: 12/03/17 Status: Ordered gabapentin 100 mg oral capsule 100 mg, = 1, Cap, Oral, QHS Start Date: 12/12/15 Status: Ordered hydrOXYzine pamoate 0 Refill(s) Start Date: 12/03/17 Status: Ordered ibuprofen PRN, Pain Start Date: 08/17/19 Status: Ordered Levothroid 50 mcg (0.05 mg) oral tablet 50 mcg, = 1, tab, Oral, DAILY Start Date: 12/12/15 Status: Ordered [place] 5 mg-325 mg oral tablet 1-2 tabs, [...] Date: 09/13/14 Stop Date: 09/17/14 Status: Completed oxyCODONE 5 mg oral capsule 5 mg, = 1, Cap, po, Q6H, PRN, for pain, X 3, day, # 7, Cap, 0 Refill(s) Start Date: 08/17/19 Stop Date: 08/20/19 Status: Completed TNF COMMENT per daughter, patient [...] deltoid. Social History Social History Type Response Tobacco Current everyday smo ker Assessment and Plan Future Appointments ??
--- OUTSIDE RECORDS SUMMARY | 2022-06-10 13:04 | XMS_ITS ---
Author Name Unknown Organization [facility] Care Team Providers Care Chimney Repairer Name Role Phone Jeana Duncan Primary Care Physician Encounter FIN Number [id number] Date(s): 09/13/14 - 09/13/14 [id number] Discharge Disposition: Discharged to home or self care Attending Physician: Vickie Santana MD Admitting Physician: Vickie Santana MD Vital Signs Most recent to oldest [Reference Range]: 1 2 3 MF Score 0 (09/13/14 9:07 PM) Temperature Oral [35.8-37.3 DegC] 36.7 DegC (09/13/14 4:55 PM) Heart Rate [60-100 bpm] 73 bpm (09/13/14 10:45 PM) 77 bpm (09/13/14 9:45 PM) 86 bpm (09/13/14 9:15 PM) Pulse Rate 73 bpm (09/13/14 10:45 PM) 80 bpm (09/13/14 10:30 PM) 78 bpm (09/13/14 10:15 PM) Respiratory Rate [12-24 br/min] 16 br/min (09/13/14 10:45 PM) 14 br/min (09/13/14 9:45 PM) 17 br/min (09/13/14 9:15 PM) Blood Pressure [90-140/60-90 mmHg] 123/71mmHg (09/13/14 10:45 PM) 118/68mmHg (09/13/14 10:30 PM) 123/67mmHg (09/13/14 10:15 PM) Mean Arterial Pressure 84 mmHg (09/13/14 10:45 PM) 81 mmHg (09/13/14 10:30 PM) 82 mmHg (09/13/14 10:15 PM) Masked Patient No (09/13/14 4:55 PM) Masked Staff No (09/13/14 4:55 PM) Medical Gas Room Air (09/13/14 10:45 PM) Room Air (09/13/14 10:30 PM) Room Air (09/13/14 10:15 PM) O2 Saturation [94-100 %] 99 % (09/13/14 10:45 PM) 97 % (09/13/14 10:30 PM) 98 % (09/13/14 10:15 PM) Problem List No data available for this section Allergies, Adverse Reactions, Alerts Substance Reaction Severity Status NKA Active Medications cephalexin 500 mg oral capsule 500 mg, = 1, Cap, po, QID, X 5, day, # 20, Cap, 0 Refill(s) Start Date: 09/13/14 Stop Date: 09/18/14 Status: Ordered [place] 5 mg-325 mg oral tablet 1-2 tabs, po, Q4H, PRN, for pain, (not to exceed 4000 mg acetaminophen per day) Do not drive or operate machinery while on medications please., # 20, tab, 0 Refill(s) Special Instructions: (not to exceed 4000 mg acetaminophen per day) Do not drive or operate machinery while on medications please. Start Date: 08/19/13 Status: Ordered oxyCODONE 5 mg oral capsule 5 mg, = 1, Cap, po, Q6H, PRN, for pain, 1 to 2 every 4 to 6 hours as needed for pain. Avoid excessive sedation., X 4, day, # 24, Cap, 0 Refill(s) Special Instructions: 1 to 2 every 4 to 6 hours as needed for pain. Avoid excessive sedation. Start Date: 09/13/14 Stop Date: 09/17/14 Status: Ordered Results Hematology Most recent to oldest [Reference Range]: 1 WBC [4.0-11.0 K/uL] 9.4 K/uL (09/13/14 8:00 PM) RBC [3.80-5.20 M/uL] 3.52 M/uL *LOW* (09/13/14 8:00 PM) Hgb [11.6-15.5 gm/dL] 13.3 gm/dL (09/13/14 8:00 PM) Hct [35.0-46.0 %] 39.0 % (7/9/15 8:00 PM) MCV [80.0-100.0 FL] 110.6 FL *HI* (09/13/14 8:00 PM) MCH [25.0-34.0 PG] 37.8 PG *HI* (09/13/14 8:00 PM) MCHC [31.0-36.0 gm/dL] 34.1 gm/dL (09/13/14 8:00 PM) RDW [11.0-14.5 %] 12.9 % (09/13/14 8:00 PM) Platelet [150-400 K/uL] 209 K/uL (09/13/14 8:00 PM) Neut Auto 81.3 % *NA* (09/13/14 8:00 PM) Lymph Auto 13.0 % *NA* (09/13/14 8:00 PM) [place] Auto 4.9 % *NA* (09/13/14 8:00 PM) Eos Auto 0.3 % *NA* (09/13/14 8:00 PM) Baso Auto 0.5 % *NA* (09/13/14 8:00 PM) Neut# Auto [2.0-7.3 K/uL] 7.7 K/uL *HI* (09/13/14 8:00 PM) Lymph# Auto [1.0-3.4 K/uL] 1.2 K/uL (09/13/14 8:00 PM) [place]# Auto [0.00-0.80 K/uL] 0.50 K/uL (09/13/14 8:00 PM) Eos# Auto [0.0-0.5 K/uL] 0.0 K/uL (09/13/14 8:00 PM) Baso# Auto [0.0-0.1 K/uL] 0.0 K/uL (09/13/14 8:00 PM) RBC Morph [Normal] Abnormal *ABN* (09/13/14 8:00 PM) Macrocytosis 2+ *ABN* (09/13/14 8:00 PM) Coagulation Most recent to oldest [Reference Range]: 1 PT [11.8-14.1 sec] 13.0 sec (09/13/14 8:00 PM) INR [0.9-1.2] 1.0 (09/13/14 8:00 PM) PTT [24-34 sec] 27 sec (09/13/14 8:00 PM) Chemistry Most recent to oldest [Reference Range]: 1 POC Na [135-145 mmol/l] 141 mmol/l (09/13/14 8:13 PM) POC K [3.5-5.3 mmol/l] 3.7 mmol/l (09/13/14 8:13 PM) POC Chloride [98-109 mmol/L] 105 mmol/L (09/13/14 8:13 PM) POC TCO2M [21-32 mmol/L] 22 mmol/L (09/13/14 8:13 PM) POC AGAP [5-16] 19 *HI* (09/13/14 8:13 PM) POCi Glucose [70-200 mg/dL] 114 mg/dL (09/13/14 8:13 PM) POC BUN [7.00-23.00 mg/dL] 11.00 mg/dL (09/13/14 8:13 PM) POC CREAT [0.6-1.2 mg/dL] 0.6 mg/dL (09/13/14 8:13 PM) POC Ca Ion [1.05-1.32 mmol/l] 1.22 mmol/ l (09/13/14 8:13 PM) Albumin [3.3-4.8 gm/dL] 4.1 gm/dL (09/13/14 8:00 PM) Total Protein [6.3-8.0 gm/dL] 7.4 gm/dL (09/13/14 8:00 PM) Globulin [1.8-3.5 gm/dL] 3.3 gm/dL (09/13/14 8:00 PM) Alk Phos [31-98 U/L] 64 U/L (09/13/14 8:00 PM) A/G Ratio [1.0-2.2 gm/dL] 1.2 gm/dL (09/13/14 8:00 PM) Bili Total [0.0-1.5 mg/dL] 0.9 mg/dL (09/13/14 8:00 PM) Bili Direct [0.0-0.3 mg/dL] <0.2 mg/dL (09/13/14 8:00 PM) AST [5-40 U/L] 33 U/L (09/13/14 8:00 PM) ALT [5-50 U/L] 19 U/L (09/13/14 8:00 PM) Immunizations No data available for this section Procedures No data available for this section Social History Social History Type Response Smoking Status Former smoker Assessment and Plan Future Appointments ??
--- OUTSIDE RECORDS SUMMARY | 2022-06-10 13:04 | XMS_ITS ---
Author Name Unknown Organization [facility] Address Unknown Care Team Providers Care Examination Scorer Name Role Phone Willa N[place] Primary Care Physician Encounter FIN Number [id number] Date(s): 01/17/21 - 01/19/[address] [facility] Encounter Diagnosis Encounter for laboratory testing for COVID-19 virus(Discharge Diagnosis) - 01/17/21 Attending Physician: India Ko PA-C Admitting Physician: India Ko PA-C Problem List Condition Effective Dates Status Health [...] Oral, DAILY Start Date: 12/12/15 Status: Ordered [place] 5 mg-325 mg oral tablet 1-2 tabs, [...] DAILY Start Date: 12/12/15 Status: Ordered Results Most recent to oldest [Reference Range]: 1 COVID-19 Result [Not Detected] Not Detec isaiah (01/17/21 10:07 AM) Immunizations Given and Recorded Vaccine Date Status Refusal Reason tetanus/diphth/pertuss (Tdap) adult/adol 1 12/21/15 Given 1Result Comment: Right deltoid. Social History Social History Type Response Tobacco Current everyday smo ker Assessment and Plan Future Appointments ??
--- OUTSIDE RECORDS SUMMARY | 2022-06-10 13:04 | XMS_ITS ---
Author Name Unknown Organization [facility] Care Team Providers Care [employer] Name Role Phone Jeana Duncan Primary Care Physician [phone] Encounter FIN Number [id number] Date(s): 09/26/14 - 09/26/14 [facility] Discharge Disposition: Discharged to home or self care Attending Physician: Billy Vides MD Admitting Physician: Billy Vides MD Vital Signs No data available for this section Problem List No data available for this section Allergies, Adverse Reactions, Alerts Substance Reaction Severity Status NKA Active Medications cephalexin 500 mg oral capsule 500 mg, = 1, Cap, po, QID, X 5, day, # 20, Cap, 0 Refill(s) Start Date: 09/13/14 Stop Date: 09/18/14 Status: Completed [place] 5 mg-325 mg oral tablet 1-2 tabs, po, Q4H, PRN, for pain, (not to exceed 4000 mg acetaminophen per day) Do not drive or operate machinery while on medications please., # 20, tab, 0 Refill(s) Start Date: 08/19/13 Status: Ordered oxyCODONE 5 mg oral capsule 5 mg, = 1, Cap, po, Q6H, PRN, for pain, 1 to 2 every 4 to 6 hours as needed for pain. Avoid excessive sedation., X 4, day, # 24, Cap, 0 Refill(s) Start Date: 09/13/14 Stop Date: 09/17/14 Status: Completed Results No data available for this section Immunizations No data available for this section Procedures No data available for this section Social History Social History Type Response Smoking Status Former smoker Assessment and Plan Future Appointments ??
--- OUTSIDE RECORDS SUMMARY | 2022-06-10 13:04 | XMS_ITS ---
Author Name Unknown Organization [facility] Address Unknown Care Team Providers Care Skin Care Therapist Name Role Phone Jeana Duncan Primary Care Physician Encounter FIN Number [id number] Date(s): 12/03/17 - 12/03/17 [facility] [address], [address] [place] [address]- Encounter Diagnosis New onset headache(Discharge Diagnosis) - 12/03/17 Neck stiffness(Discharge Diagnosis) - 12/03/17 Gait instability(Discharge Diagnosis) - 12/03/17 Attending Physician: Jaquan Holilday Admitting Physician: Jaquan Holliday Vital Signs Most recent to oldest [Reference Range]: 1 Body Mass Index 21 (12/03/17 9:08 AM) Height 172.72 cm (12/03/17 9:08 AM) Height In Inches 68 in (12/03/17 9:08 AM) Height Method Actual (12/03/17 9:08 AM) Weight 61.236 kg (12/03/17 9:08 AM) Weight In Pounds 135.002 lb (12/03/17 9:08 AM) Weight Method Stated (12/03/17 9:08 AM) BSA 1.73 (12/03/17 9:08 AM) Temperature Oral [96.4-99.1 DegF] 98.8 D egF (12/03/17 9:08 AM) Heart Rate [60-100 bpm] 94 bpm (12/03/17 9:08 AM) Respiratory Rate [12-24 br/min] 16 br/mi n (12/03/17 9:08 AM) Blood Pressure [90-140/60-90 mmHg] 126/7 8mmHg (12/03/17 9:08 AM) Masked Patient No (12/03/17 9:08 AM) Masked Staff No (12/03/17 9:08 AM) O2 Saturation [94-100 %] 99 % (12/03/17 9:08 AM) Problem List Condition Effective Dates Status [...] Oral, DAILY Start Date: 12/12/15 Status: Ordered [place] 5 mg-325 mg oral tablet 1-2 tabs, [...] History Type Response Smoking Status Former smoker; [facility] ed at age: 40; 1 entered on: 12/21/15 1Smoked one half cigarette in last week and a half. Assessment and Plan Extracted from: Title:Urgent Care Author:Jaquan HollidayP Date:12/03/17 1.??New onset headache ?? (R 51) New onset headache??in patient who reports she does not typically get headaches, neck stiffness, and gait instability. ??Directed patient to ER in private vehicle for further eval and treatment as indicated.?? Patient understands and agrees with plan, ??Patient's daughter will drive her to the ER. 2.??Neck stiffness ?? (M43.6) As noted above 3.??Gait instability ?? (R26.81) As noted above Future Appointments ??
--- OUTSIDE RECORDS SUMMARY | 2022-06-10 13:05 | XMS_ITS ---
Author Name Unknown Organization [facility] Address Unknown Care Team Providers Care Cover Creaser Name Role Phone Willa Nj Primary Care Physician Encounter FIN Number [id number] Date(s): 08/17/19 - 08/17/19 [facility] [address], [address] [place], [place] [address] Encounter Diagnosis Injury of left hand(Discharge Diagnosis) - 08/17/19 Contusion of hand(Discharge Diagnosis) - 08/17/19 Attending Physician: Makeda Carcamo PA-C Admitting Physician: Makeda Carcamo PA-C Vital Signs Most recent to oldest [Reference Range]: 1 BSA 1.7 (08/17/19 8:10 AM) Blood Pressure [90-140/60-90 mmHg] 134/8 0mmHg (08/17/19 8:10 AM) Body Mass Index 20 kg/m2 (08/17/19 8:10 AM) Heart Rate [60-100 bpm] 84 bpm (08/17/19 8:10 AM) Height 172.72 cm (08/17/19 8:10 AM) Height In Inches 68 in (08/17/19 8:10 AM) Height Method Actual (08/17/19 8:10 AM) Masked Patient Yes (08/17/19 8:10 AM) Masked Staff Yes (08/17/19 8:10 AM) O2 Saturation [90-100 %] 99 % (08/17/19 8:10 AM) Respiratory Rate [12-24 br/min] 20 br/mi n (08/17/19 8:10 AM) Temperature Oral [35.8-37.3 DegC] 37.0 D egC (08/17/19 8:10 AM) Weight 58.968 kg (08/17/19 8:10 AM) Weight In Pounds 130.002 lb (08/17/19 8:10 AM) Weight Last Obtained Date (08/17/19 8:10 AM) Weight Method Stated (08/17/19 8:10 AM) Problem List Condition Effective Dates Status [...] Oral, DAILY Start Date: 12/12/15 Status: Ordered [place] 5 mg-325 mg oral tablet 1-2 tabs, [...] Start Date: 08/17/19 Stop Date: 08/20/19 Status: Ordered TNF COMMENT per daughter, patient hasn't taken [...]
--- OUTSIDE RECORDS SUMMARY | 2022-06-10 13:05 | XMS_ITS ---
Author Name Unknown Organization [email or web address] Care Team Providers Care Health Club Attendant Name Role Phone Jeana Duncan Primary Care Physician Encounter FIN Number [id number] Date(s): 12/21/15 - 12/21/15 [email or web address] Discharge Disposition: Discharged to home or self care Attending Physician: Vickie Santana MD Admitting Physician: Vickie Santana MD Vital Signs Most recent to oldest [Reference Range]: 1 2 3 Height 172.72 cm (12/21/15 6:40 AM) Height In Inches 68 in (12/21/15 6:40 AM) Height Method Actual (12/21/15 6:40 AM) MF Score 40 (12/21/15 7:07 AM) Temperature Oral [35.8-37.3 DegC] 36.5 DegC (12/21/15 6:40 AM) Heart Rate [60-100 bpm] 68 bpm (12/21/15 6:40 AM) Pulse Rate 91 bpm (12/21/15 10:30 AM) 86 bpm (12/21/15 10:00 AM) 80 bpm (12/21/15 9:45 AM) Respiratory Rate [12-24 br/min] 16 br/min (12/21/15 6:40 AM) Blood Pressure Method Automatic (12/21/15 10:30 AM) Automatic (12/21/15 10:00 AM) Automatic (12/21/15 9:45 AM) Blood Pressure Cuff Size Medium (12/21/15 9:21 AM) Blood Pressure Extremity Left (12/21/15 10:30 AM) Left (12/21/15 10:00 AM) Left (12/21/15 9:45 AM) Blood Pressure [90-140/60-90 mmHg] 127/53mmHg (12/21/15 10:30 AM) 126/61mmHg (12/21/15 10:00 AM) 113/71mmHg (12/21/15 9:45 AM) Mean Arterial Pressure 72 mmHg (12/21/15 10:30 AM) 77 mmHg (12/21/15 10:00 AM) 81 mmHg (12/21/15 9:45 AM) Masked Patient No (12/21/15 6:40 AM) Masked Staff No (12/21/15 6:40 AM) Medical Gas Room Air (12/21/15 10:30 AM) Room Air (12/21/15 10:00 AM) Room Air (12/21/15 9:45 AM) O2 Saturation [94-100 %] 100 % (12/21/15 10:30 AM) 98 % (12/21/15 10:00 AM) 98 % (12/21/15 9:45 AM) Systolic Blood Pressure Supine [90-140 mmHg] 120 mmHg (12/21/15 9:21 AM) Diastolic Blood Pressure Supine [60-90 mmHg] 67 mmHg (12/21/15 9:21 AM) Pulse Supine [60-100 bpm] 73 bpm (12/21/15 9:21 AM) Systolic Blood Pressure Standing [90-140 mmHg] 130 mmHg (12/21/15 9:21 AM) Diastolic Bood Pressure Standing [60-90 mmHg] 67 mmHg (12/21/15 9:21 AM) Pulse Standing [60-100 bpm] 77 bpm (12/21/15 9:21 AM) Systolic Standing BP 3 minutes 113 mmHg (12/21/15 9:21 AM) Diastolic Standing BP 3 minutes 71 mmHg (12/21/15 9:21 AM) Pulse Standing 3 minutes 88 bpm (12/21/15 9:21 AM) Problem List Condition Effective Dates Status [...] Oral, DAILY Start Date: 12/12/15 Status: Ordered [place] 5 mg-325 mg oral tablet 1-2 tabs, [...] oldest [Reference Range]: 1 WBC [4.0-11.0 K/uL] 4.4 K/uL (12/21/15 7:30 AM) RBC [3.80-5.20 M/uL] 3.44 M/uL *LOW* (12/21/15 7:30 AM) Hgb [11.6-15.5 gm/dL] 11.7 gm/dL (12/21/15 7:30 AM) Hct [35.0-46.0 %] 35.6 % (12/21/15 7:30 AM) MCV [80.0-100.0 FL] 103.4 FL *HI* (12/21/15 7:30 AM) MCH [25.0-34.0 PG] 34.0 PG (12/21/15 7:30 AM) MCHC [31.0-36.0 gm/dL] 32.9 gm/dL (12/21/15 7:30 AM) RDW [11.0-14.5 %] 16.6 % *HI* (12/21/15 7:30 AM) Platelet [150-400 K/uL] 204 K/uL (12/21/15 7:30 AM) Neut Auto 43.8 % *NA* (12/21/15 7:30 AM) Lymph Auto 35.4 % *NA* (12/21/15 7:30 AM) [place] Auto 17.5 % *NA* (12/21/15 7:30 AM) Eos Auto 2.2 % *NA* (12/21/15 7:30 AM) Baso Auto 1.1 % *NA* (12/21/15 7:30 AM) Neut# Auto [2.0-7.3 K/uL] 1.9 K/uL *LOW* (12/21/15 7:30 AM) Lymph# Auto [1.0-3.4 K/uL] 1.5 K/uL (12/21/15 7:30 AM) [place]# Auto [0.00-0.80 K/uL] 0.80 K/uL (12/21/15 7:30 AM) Eos# Auto [0.0-0.5 K/uL] 0.1 K/uL (12/21/15 7:30 AM) Baso# Auto [0.0-0.1 K/uL] 0.0 K/uL (12/21/15 7:30 AM) Coagulation Most recent to oldest [Reference Range]: 1 PT [11.8-14.1 sec] 13.8 sec (12/21/15 8:09 AM) INR [0.9-1.2] 1.1 (12/21/15 8:09 AM) Chemistry Most recent to oldest [Reference Range]: 1 POC Na [135-145 mmol/l] 139 mmol/l (12/21/15 7:40 AM) POC K [3.5-5.3 mmol/l] 4.4 mmol/l (12/21/15 7:40 AM) POC Chloride [98-109 mmol/L] 102 mmol/L (12/21/15 7:40 AM) POC TCO2M [21-32 mmol/L] 24 mmol/L (12/21/15 7:40 AM) POC AGAP [5-16] 18 *HI* (12/21/15 7:40 AM) POCi Glucose [70-200 mg/dL] 99 mg/dL (12/21/15 7:40 AM) POC BUN [7.00-23.00 mg/dL] 8.00 mg/dL (12/21/15 7:40 AM) POC CREAT [0.6-1.2 mg/dL] 0.7 mg/dL (12/21/15 7:40 AM) POC Ca Ion [1.05-1.32 mmol/l] 1.23 mmol/ l (12/21/15 7:40 AM) Albumin [3.3-4.8 gm/dL] 4.2 gm/dL (12/21/15 7:30 AM) Total Protein [6.3-8.0 gm/dL] 7.1 gm/dL (12/21/15 7:30 AM) Globulin [1.8-3.5 gm/dL] 2.9 gm/dL (12/21/15 7:30 AM) Alk Phos [31-120 U/L] 76 U/L (12/21/15 7:30 AM) A/G Ratio [1.0-2.2 Ratio] 1.4 Ratio (12/21/15 7:30 AM) Bili Total [0.0-1.5 mg/dL] 0.6 mg/dL (12/21/15 7:30 AM) Bili Direct [0.0-0.3 mg/dL] <0.2 mg/dL (12/21/15 7:30 AM) AST [5-40 U/L] 65 U/L 1 *HI* (12/21/15 7:30 AM) ALT [5-50 U/L] 44 U/L (12/21/15 7:30 AM) POC TROP [0.04-0.30 ng/mL] <.04 ng/mL (12/21/15 7:44 AM) Ethanol Lvl [<=10.1 mg/dL] <10.1 mg/dL (12/21/15 7:30 AM) 1Result Comment: HEMOLYSIS: specimen is hemolyzed. Result is affected by the amount of hemolysis detected and may be falsely elevated. Urine Studies Most recent to oldest [Reference Range]: 1 POC Urine Spec. [place] 1.015 (12/21/15 8:33 AM) POC Urine Color Donna *ABN* (12/21/15 8:33 AM) POC Urine Clarity Cloudy *ABN* (12/21/15 8:33 AM) POC Urine Glucose Negative *NA* (12/21/15 8:33 AM) POC Urine Bilirubin Negative (12/21/15 8:33 AM) POC Urine Ketones Negative *NA* (12/21/15 8:33 AM) POC Urine Blood Negative (12/21/15 8:33 AM) POC Urine PH 6.0 (12/21/15 8:33 AM) POC Urine Protein Negative mg/dL (12/21/15 8:33 AM) POC Urine Urobilinogen 4.0 *ABN* (12/21/15 8:33 AM) POC Urine Nitrites Negative (12/21/15 8:33 AM) POC Urine Leukocytes Negative (12/21/15 8:33 AM) Immunizations Vaccine Date Refusal Reason tetanus/diphth/pertuss (Tdap) adult/adol 1 12/20 1Result Comment: Right deltoid. Procedures No data available for this section Social History Social History Type Response Smoking Status Former smoker; [facility] ed at age: 40 1 1Smoked one half cigarette in last week and a half. Assessment and Plan Future Appointments ??
--- OUTSIDE RECORDS SUMMARY | 2022-06-10 13:05 | XMS_ITS ---
Author Name Unknown Organization [facility] Address Unknown Care Team Providers Care Roller Printing Supervisor Name Role Phone Jeana Duncan Primary Care Physician [phone] Encounter FIN Number [id number] Date(s): 12/03/17 - 12/03/17 [facility] [address], [address] [place] [address]- Encounter Diagnosis New onset headache(Discharge Diagnosis) - 12/03/17 Neck stiffness(Discharge Diagnosis) - 12/03/17 Gait instability(Discharge Diagnosis) - 12/03/17 Attending Physician: Jaquan Holliday Admitting Physician: Jaquan Holliday Vital Signs Most [...] Oral, DAILY Start Date: 12/12/15 Status: Ordered [place] 5 mg-325 mg oral tablet 1-2 tabs, [...] History Type Response Smoking Status Former smoker; [facility] ed at age: 40; 1 entered on: [...]
--- OUTSIDE RECORDS SUMMARY | 2022-06-10 13:05 | XMS_ITS ---
Author Name Unknown Organization [facility] Address Unknown Care Team Providers Care Ivory Polisher Name Role Phone Willa Nj Primary Care Physician Encounter FIN Number [id number] Date(s): 10/11/19 - 10/11/19 [facility] [address], [address] [place], [place] [address] Encounter Diagnosis Diarrhea(Discharge Diagnosis) - 10/11/19 Abdominal pain(Discharge Diagnosis) - 10/11/19 Attending Physician: Jimbo Haji PA-C Admitting Physician: Jimbo Haji PA-C Vital Signs Most recent to oldest [Reference Range]: 1 Blood Pressure [90-140/60-90 mmHg] 102/7 1mmHg (10/11/19 9:55 AM) Heart Rate [60-100 bpm] 69 bpm (10/11/19 9:55 AM) Height 172.72 cm (10/11/19 9:55 AM) Height In Inches 68 in (10/11/19 9:55 AM) Height Method Actual (10/11/19 9:55 AM) Masked Patient Yes (10/11/19 9:55 AM) Masked Staff Yes (10/11/19 9:55 AM) O2 Saturation [90-100 %] 97 % (10/11/19 9:55 AM) Respiratory Rate [12-24 br/min] 16 br/mi n (10/11/19 9:55 AM) Temperature Oral [96.4-99.1 DegF] 98.7 D egF (10/11/19 9:55 AM) Weight Last Obtained Date (10/11/19 9:55 AM) Problem List Condition Effective Dates Status [...] Oral, DAILY Start Date: 12/12/15 Status: Ordered [place] 5 mg-325 mg oral tablet 1-2 tabs, [...] ker Assessment and Plan Future Appointments ?? Diagnostic Tests Pending * COVID-19.Ref 10/11/19 * PCR, Clostridium difficile.ref 10/11/19 * Culture, Stool 10/11/19 * Ova and Parasites 10/11/19
--- OUTSIDE RECORDS SUMMARY | 2022-06-10 13:05 | XMS_ITS ---
Author Name Unknown Organization [facility] Address Unknown Care Team Providers Care Wedding Transportation Driver Name Role Phone Willa Nj Primary Care Physician Encounter FIN Number [id number] Date(s): 01/17/21 - 01/17/21 [facility] [address], [address] [place] [id number] Encounter Diagnosis Ear fullness(Discharge Diagnosis) - 01/17/21 Encounter for laboratory testing for COVID-19 virus(Discharge Diagnosis) - 01/17/21 Attending Physician: India Ko PA-C Admitting Physician: India Ko PA-C Vital Signs Most recent to oldest [Reference Range]: 1 BSA 1.63 (01/17/21 10:03 AM) Blood Pressure [90-139/60-89 mmHg] 119/7 2mmHg (01/17/21 10:03 AM) Blood Pressure Pt Stated or In Office In office (01/17/21 10:03 AM) Body Mass Index 18 kg/m2 (01/17/21 10:03 AM) Heart Rate [60-100 bpm] 76 bpm (01/17/21 10:03 AM) Height 172.72 cm (01/17/21 10:03 AM) Height In Inches 68 in (01/17/21 10:03 AM) Height Last Obtained Date (01/17/21 10:03 AM) Height Method Stated (01/17/21 10:03 AM) Masked Patient Yes (01/17/21 10:03 AM) Masked Staff Yes (01/17/21 10:03 AM) O2 Saturation [90-100 %] 98 % (01/17/21 10:03 AM) Respiratory Rate [12-24 br/min] 16 br/mi n (01/17/21 10:03 AM) Temperature Temporal Artery [36.4-37.2 D egC] 35.8 DegC *LOW* (01/17/21 10:03 AM) Weight 53.071 kg (01/17/21 10:03 AM) Weight In Pounds 117.002 lb (01/17/21 10:03 AM) Weight Last Obtained Date (01/17/21 10:03 AM) Weight Method Stated (01/17/21 10:03 AM) Problem List Condition Effective Dates Status [...] Oral, DAILY Start Date: 12/12/15 Status: Ordered [place] 5 mg-325 mg oral tablet 1-2 tabs, [...]
--- OUTSIDE RECORDS SUMMARY | 2022-06-10 13:05 | XMS_ITS ---
Author Name Unknown Organization [facility] Address Unknown Care Team Providers Care Administration Intern Name Role Phone Jeana Duncan Primary Care Physician Encounter FIN Number [id number] Date(s): 12/03/17 - 12/03/17 [facility] [address] [place], [place] [address]- [phone] Discharge Disposition: Discharged to home or self [...] Oral, DAILY Start Date: 12/12/15 Status: Ordered [place] 5 mg-325 mg oral tablet 1-2 tabs, [...]
== END 2022-06-10 14:32 | disposition home or self-care (01) ==
PROVIDERS: Emergency Provider Emergency Medicine Emergency Medical Services; PCP Family Medicine
DX: S01.112A Laceration without foreign body of left eyelid and periocular area, initial encounter (principal); W01.0XXA Fall on same level from slipping, tripping and stumbling without subsequent striking against object, initial encounter; M25.531 Pain in right wrist; M25.551 Pain in right hip; M25.571 Pain in right ankle and joints of right foot; Y93.01 Activity, walking, marching and hiking; Y92.488 Other paved roadways as the place of occurrence of the external cause; Y99.9 Unspecified external cause status
CPT/HCPCS: 70450; 72125; 73100; 73502; 73610; 90471; 90715; 99282; 99284